=== PATIENT | female | born 1980 | race Caucasian/White ===

== ENCOUNTER 2018-11-05 18:24 | Emergency (ER) | payer MEDICAID ==
[~2018-11-05] VITALS: Ht 165.1 cm; Wt 68.0 kg
[~2018-11-05 18:24] MED LIST: ACET500C5 PO; IBUP800T48 PO; ONDA4TAB35 PO; PRENAT PO
[2018-11-05 18:30] VITALS: Ht 165.1 cm; Wt 68.0 kg
[2018-11-05] MEDS ORDERED: IBUPROFEN 600 MG TAB PO ONE (20:30)
--- NOTE | 2018-11-05 20:41 | ERD ---
ER Documentation Chief Complaint Chief Complaint R rib pain everytime she breathes in x 3 days, w/R upper back, too HPI 38-year-old female with no significant past medical history presenting to the emergency department complaining of constant right mid rib pain which is rated 8/10 in severity for the past 3 days. She took Tylenol at home without significant relief. Pain is worse with deep inspiration. She has never had the symptoms in the past. She denies any cough, fevers, chills, abdominal pain, nausea, vomiting, diarrhea, falls, trauma, or other symptoms at this time. 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 ROS All systems reviewed and are negative except as per history of present illness. Medications Home Meds Active Scripts Cyclobenzaprine Hcl* (Cyclobenzaprine Hcl*) 10 Mg Tablet, 10 MG PO TID, #15 TAB Prov:CHANDRAKANT KHAN PA-C 11/05/18 Naproxen* (Naprosyn*) 500 Mg Tablet, 500 MG PO BID PRN for PAIN AND/OR INFLAMMATION, #30 TAB Prov:CHANDRAKANT KHAN PA-C 11/05/18 Ibuprofen* (Motrin*) 800 Mg Tab, 800 MG PO Q6, #30 TAB Prov:SELINA IBRAHIM PA-C 06/21/18 Ondansetron Hcl* (Zofran* ODT) 4 mg -ODT Tab.disper, 4 MG PO Q8 PRN for NAUSEA AND/OR VOMITING, #30 TAB Prov:EKATERINA KOLB NP 11/07/15 Acetaminophen* (Tylophen*) 500 Mg Capsule, 1 CAP PO Q6H PRN for PAIN AND OR ELEVATED TEMP, #20 CAP Prov:EKATERINA KOLB NP 11/07/15 Reported Medications Multivit/Min/Fol Ac/Iron/Pren* ( S*) 1 Tab Tab, 1 TAB PO DAILY, TAB 02/16/16 Allergies Allergies: Coded Allergies: No Known Allergy (Unverified , 06/21/18) PMhx/Soc Medical and Surgical Hx: pt denies Medical Hx History of Surgery: No Anesthesia Reaction: No Hx Neurological Disorder: No Hx Respiratory Disorders: No Hx Cardiac Disorders: No Hx Psychiatric Problems: No Hx Miscellaneous Medical Probl: No Hx Alcohol Use: No Hx Substance Use: No Hx Tobacco Use: No Smoking Status: Never smoker FmHx Family History: No diabetes Physical Exam Vitals Vital Signs Date Temp Pulse Resp B/P (MAP) Pulse Ox O2 O2 Flow FiO2 Time Delivery Rate 11/05/18 98.2 82 17 111/52 99 Room Air 21:55 (71) 11/05/18 98.0 68 18 108/56 100 18:30 (73) Physical Exam Const: No acute distress Head: Atraumatic Eyes: Normal Conjunctiva ENT: Normal External Ears, Nose and Mouth. Neck: Full range of motion. No meningismus. Resp: Clear to auscultation bilaterally Cardio: Regular rate and rhythm, no murmurs Abd: Soft, non tender, non distended. Normal bowel sound. No rebound tenderness or guarding. No McBurney's point tenderness. Ribs: Subjective tenderness palpation of the right mid ribs. No crepitus. No ecchymosis. Skin: No petechiae or rashes Back: No midline or flank tenderness Ext: No cyanosis, or edema Neur: Awake and alert Psych: Normal Mood and Affect Results 24 hrs Current Medications Medications Dose Sig/Amanda Start Time Status Last (Trade) Ordered Route PRN Stop Time Admin Dose Reason Admin Ibuprofen 600 mg ONCE ONCE 11/05/18 DC 11/05/18 (Motrin) PO 20:30 20:59 11/05/18 20:31 [place] [id number] Radiology Main Line: [phone] DIAGNOSTIC IMAGING REPORT Patient: EMILY COLLIER : 1980 Age: 38 Sex: F MR #: [id number] DOS: 11/05/18 0000 Ordering MD: CHANDRAKANT KHAN PA-C Location: [facility] Room/Bed: PROCEDURE: Right rib radiographs CLINICAL INDICATION: Trauma with pain TECHNIQUE: Images of the right ribs were obtained. The images were reviewed on a PACS workstation. 5 images COMPARISON: None. FINDINGS: Rib detail images show no visible right rib fracture. IMPRESSION: 1. No visible right rib fracture. RPTAT:AAJJ Ludin Gonzalez Physician Date Time Electronically viewed and signed by Ludin Gonzalez Physician on 11/05/2018 21:20 GW/ CC: CHANDRAKANT KHAN PA-C [id number] Procedures/MDM 38-year-old female presents with complaints of right mid rib pain. Right rib x- rays negative for any sign of acute abnormalities. Symptoms are likely secondary to muscular/skeletal etiology. I doubt significant chest wall injury, pneumothorax, pneumonia, pulmonary embolism, or other emergencies. Patient will be discharged home in stable condition and was advised to return to the department immediately for any new or worsening or concerning symptoms. She was advised to have 24 to 48-hour follow-up with primary care physician. She understands and agrees with plan. Departure Diagnosis: Primary Impression: Rib pain Condition: Fair Patient Instructions: Rib Contusion Additional Instructions: Muchas hilaria por [facility] para lowe servicio. Esperamos que en lowe visita a la sandoval de emergencia lowe problema medico haya sido solucionado y que se sienta mucho mejor. Para estar seguros que lowe mejoria sigue en proceso, le pedimos el favor de hacer derek zaid de seguimiento medico con lowe doctor primario en los proximos 2-4 smart. Lleve con usted estos documentos y las medicinas recetadas. Si kalen sintomas empeoran, NO SE ESPERE, por favor regrese a sandoval de emergencia INMEDIATAMENTE. En mauricio que usted no tenga un mdico de atencin primaria: Llame al mdico o clnica comunitaria de referencia que aparece abajo kwasi las horas de consultorio para hacer derek zaid para que le vean. CLINICAS: [facility] [phone] [id number] [facility] [phone] [facility] [phone] [place] [id number] [phone] [facility] [phone] [facility]. [phone] CHANDRAKANT TORRES PA-C Nov 05, 2018 20:41
[2018-11-05] MEDS ORDERED: CYCL10TA7 PO (21:42)
[2018-11-05] MEDS ORDERED: NAPR-985 PO (21:42)
[2018-11-05 21:55] VITALS: BP 111/52; PULSE 82; RESP 17
== END 2018-11-05 21:55 | disposition home or self-care (01) ==
LOC: FTE 18:24
DX: R07.81 Pleurodynia (principal)
CPT/HCPCS: 71100; Z7502; Z7610

== ENCOUNTER 2019-01-12 13:06 | Emergency (ER) | payer MEDICAID ==
[~2019-01-12] VITALS: Ht 162.6 cm; Wt 67.1 kg
[~2019-01-12 13:06] MED LIST changes: +ALBU8.5H8 INH; +AZIT250T PO; +CYCL10TA7 PO; +NAPR-985 PO; +PRED20TA PO
[2019-01-12 13:19] VITALS: BP 100/59; PULSE 86; RESP 18; Ht 162.6 cm; Wt 67.1 kg
== END 2019-01-12 13:34 | disposition home or self-care (01) ==
LOC: E/R 13:06
DX: J45.21 Mild intermittent asthma with (acute) exacerbation (principal)
CPT/HCPCS: 99282